=== PATIENT | female | born 1985 | race Caucasian/White ===

== ENCOUNTER → 2017-04-30 | Outpatient (CLI) | payer OTHER | END | disposition home or self-care (01) | LOC: US 07:16 | DX: K82.4 Cholesterolosis of gallbladder (principal); N63.0 Unspecified lump in unspecified breast ==

== ENCOUNTER → 2017-05-09 | Outpatient (CLI) | payer OTHER | LOC: US 07:09 | DX: N60.01 Solitary cyst of right breast (principal); N63.10 Unspecified lump in the right breast, unspecified quadrant; R10.11 Right upper quadrant pain ==

== ENCOUNTER → 2017-05-13 | Outpatient (CLI) | payer OTHER ==
[~2017-05-13] MED LIST: NORCO 5-325 TA1 EACH PO
[2017-05-13 13:55] LABS: BASO % 0.2 % (0.0-1.0); EOS # 0.1 10*3/uL (0.0-0.4); HEMATOCRIT 44.8 % (37.0-47.0); HEMOGLOBIN 14.6 g/dl (12.0-16.0); LYMPH # 2.3 10*3/uL (1.3-4.4); LYMPH % 20.5 % (27.0-41.0); MEAN CELL VOLUME 89.4 fl (81.0-99.0); MEAN CORPUSCULAR HGB 29.1 pg (27.0-31.0); MEAN CORPUSCULAR HGB CONC 32.6 g/dl (33.0-37.0); MEAN PLATELET VOLUME 10.1 fl (9.6-12.3); MONO # 0.6 10*3/uL (0.1-1.0); MONO % 4.9 % (3.0-9.0); NEUT # 8.3 10*3/uL (2.3-7.9); PLATELET COUNT AUTOMATED 272 10*3/uL (130-400); RED BLOOD COUNT 5.01 10*6/uL (4.10-5.10); WHITE BLOOD COUNT 11.4 10*3/uL (4.8-10.8)
[2017-05-13 14:24] LABS: ALBUMIN 4.1 gm/dl (3.1-4.5); ALKALINE PHOSPHATASE 83 U/L (45-117); BUN 8 mg/dl (7-24); CHLORIDE 108 mmol/L (98-107); CHOLESTEROL 162 mg/dL (<200); CREATININE 0.72 mg/dL (0.55-1.02); HDL CHOLESTEROL 62 mg/dl (40-60); LDL CHOLESTEROL 86 mg/dL (9-159); SGOT/AST 9 IU/L (3-35); SGPT/ALT 23 U/L (12-78); SODIUM 140 mmol/L (136-145); TOTAL PROTEIN 7.6 gm/dL (6.4-8.2); TRIGLYCERIDES 70 mg/dl (<150); VLDL CHOLESTEROL 14 mg/dL (6-40)
[2017-05-19 10:05] LABS: CORN, IGE <0.10 kU/L (Class 0); MILK (COW), IGE <0.10 kU/L (Class 0); PEANUT, IGE <0.10 kU/L (Class 0); SOYBEAN, IGE <0.10 kU/L (Class 0); WHEAT, IGE <0.10 kU/L (Class 0)
[2017-05-20 06:13] LABS: ALTERNARIA ALTERNATA, IGE <0.10 kU/L (Class 0); AMERICAN ELM, IGE <0.10 kU/L (Class 0); ASPERGILLUS FUMIGATU, IGE <0.10 kU/L (Class 0); BERMUDA GRASS, IGE <0.10 kU/L (Class 0); BIRCH, COMMON SILVER IGE <0.10 kU/L (Class 0); CLADOSPORIUM HERBARU, IGE <0.10 kU/L (Class 0); DOG DANDER, IGE 2.59 kU/L (Class III); IMMUNOGLOBULIN IgE 002170 279 IU/mL (0-100); MAPLE LEAF SYCAMORE, IGE <0.10 kU/L (Class 0); MAPLE/BOX ELDER, IGE <0.10 kU/L (Class 0); MOUSE URINE IGE <0.10 kU/L (Class 0); PENICILLIUM CHRYSOGENUM, IGE <0.10 kU/L (Class 0); ROUGH PIGWEED, IGE <0.10 kU/L (Class 0); SHEEP SORREL (DOCK), IGE <0.10 kU/L (Class 0); SHORT RAGWEED, IGE <0.10 kU/L (Class 0); TIMOTHY, IGE <0.10 kU/L (Class 0); WALNUT TREE, IGE <0.10 kU/L (Class 0); WHITE ASH, IGE <0.10 kU/L (Class 0); WHITE MULBERRY, IGE <0.10 kU/L (Class 0); WHITE OAK, IGE <0.10 kU/L (Class 0)
== END | disposition home or self-care (01) ==
LOC: LAB 13:24
PROVIDERS: Nurse Practitioner Primary Care
DX: R79.89 Other specified abnormal findings of blood chemistry (principal); Z91.09 Other allergy status, other than to drugs and biological substances; Z68.35 Body mass index [BMI] 35.0-35.9, adult

== ENCOUNTER → 2017-05-15 | Day surgery (SDC) | payer OTHER ==
[2017-05-14 13:42] VITALS: BP 124/85
[2017-05-14 14:36] LABS: BILIRUBIN 1+ (NEGATIVE); BLOOD NEGATIVE (NEGATIVE); CLARITY SL CLOUDY (CLEAR); COLOR YELLOW (YELLOW); GLUCOSE NEGATIVE (NEGATIVE); KETONE 1+ (NEGATIVE); LEUKO ESTERASE NEGATIVE (NEGATIVE); NITRITE NEGATIVE (NEGATIVE); PH 5.5 (5.0-9.0); SPECIFIC GRAVITY 1.025 (1.005-1.030); UROBILINOGEN 0.2 E.U./dl (0.2-1.0)
[2017-05-14 14:38] LABS: BASO % 0.1 % (0.0-1.0); EOS # 0.1 10*3/uL (0.0-0.4); EOS % 1.2 % (1.0-4.0); HEMATOCRIT 42.2 % (37.0-47.0); LYMPH # 2.6 10*3/uL (1.3-4.4); MEAN CELL VOLUME 89.4 fl (81.0-99.0); MEAN CORPUSCULAR HGB 29.7 pg (27.0-31.0); MEAN CORPUSCULAR HGB CONC 33.2 g/dl (33.0-37.0); MONO # 0.5 10*3/uL (0.1-1.0); MONO % 4.4 % (3.0-9.0); NEUT # 7.1 10*3/uL (2.3-7.9); PLATELET COUNT AUTOMATED 250 10*3/uL (130-400); RED BLOOD COUNT 4.72 10*6/uL (4.10-5.10); RED CELL DISTRI WIDTH 14.1 % (0-14.5); WHITE BLOOD COUNT 10.3 10*3/uL (4.8-10.8)
[2017-05-14 14:58] LABS: BACTERIA 2+; RBC 0-2 rbc/hpf (0-2); WBC 16-20 wbc/hpf (0-5)
[2017-05-14 15:05] LABS: ACT PARTIAL THROMBO TIME 27.1 SECONDS (20.8-31.5)
[2017-05-14 15:08] LABS: ALKALINE PHOSPHATASE 77 U/L (45-117); BILIRUBIN, DIRECT 0.2 mg/dL (0.0-0.2); BUN 9 mg/dl (7-24); CHLORIDE 106 mmol/L (98-107); CREATININE 0.72 mg/dL (0.55-1.02); POTASSIUM 3.7 mmol/L (3.5-5.1); SGPT/ALT 19 U/L (12-78); SODIUM 139 mmol/L (136-145); TOTAL PROTEIN 7.6 gm/dL (6.4-8.2)
[2017-05-14 15:19] LABS: SGOT/AST 11 IU/L (3-35)
[2017-05-15] VITALS (10 sets, daily range): BP systolic 103–165; BP diastolic 51–75
[~2017-05-15] VITALS: Ht 160 cm; Wt 90.7 kg
--- NOTE | ~2017-05-15 | O ---
[place], [place] OPERATIVE NOTE [facility]: [id number] UNIT #: [id number] ROOM: DOCTOR: NAZARIO ROSEN MD BIRTHDATE: [birth year] DOS: 05/15/2017 PREOPERATIVE DIAGNOSIS: Gallbladder adenoma, symptomatic gallbladder disease. POSTOPERATIVE DIAGNOSIS: Gallbladder adenoma, symptomatic gallbladder disease. PROCEDURE: Laparoscopic cholecystectomy. SURGEON: Nazario Rosen MD GROUP WORK PROGRAM DIRECTOR: PACO. ANESTHESIA: General with endotracheal intubation. INDICATIONS: This is a 31-year-old lady who has a history of right upper quadrant pain, for which an ultrasound was done, which revealed a gallbladder polyp/adenoma. She is here for the above-mentioned procedure. The procedure and its complications were explained to the patient in detail preoperatively. Complications that were discussed included but were not limited to bleeding, infection, hematoma/seroma/abscess formation, biloma formation, prolonged postoperative pain, damage to underlying vital structures, inadvertent injury to common bile duct and incisional hernia formation. She agreed to proceed. DESCRIPTION OF PROCEDURE: After identifying the patient, the patient was brought to the operating suite and laid in the supine position. After induction of general anesthesia, the parts were then painted and draped in the usual sterile fashion. An incision below the umbilicus in a transverse fashion was made. The skin and the subcutaneous tissue were incised in the line of the incision. The fascia was incised vertically and 2 stay sutures with 0 Vicryl were taken on either side. The peritoneum was opened and a 12 mm Daisy port was introduced. A pneumoperitoneum was created. Under direct vision, an epigastric incision of 10 mm and two 5 mm incisions were made in the right upper quadrant and appropriate size ports were introduced. The gallbladder was retracted superiorly and laterally. The cystic duct and the cystic artery were meticulously dissected until the critical view of safety was obtained and the triangle of Calot was clearly identified. Thereafter, each of the structures were clipped 3 times and cut between the first and the second clip. The gallbladder was then removed from the bed of the gallbladder with the help of electrocautery. It was removed from the peritoneal cavity in an EndoCatch bag and sent for histopathological diagnosis. Thereafter, hemostasis was confirmed in the liver bed. After hemostasis was confirmed, the right upper quadrant and the epigastric ports were removed under direct vision and there was no bleeding seen. The umbilical port was also removed and the pneumoperitoneum was decompressed. The 2 stay sutures were tied together and an additional 0 Vicryl stitch was taken in a sywuuk-[id number]-mezsd fashion to close the fascia. The subcutaneous tissue was irrigated and the skin edges were infiltrated with 1% lidocaine. The edges of the skin were then approximated with the help of 4-0 Vicryl in a subcuticular running fashion. Dressings were placed on all the four incisions. The patient was extubated uneventfully and brought back to the [place], [place] OPERATIVE NOTE NAME: JAGRUTI MACK UNIT #: [id number] ROOM: DOCTOR: NAZARIO ROSEN MD BIRTHDATE: [birth year] recovery room in stable fashion. There were no complications. Dr. Nazario Rosen, the attending surgeon, was present throughout the operating case. Nazario Rosen MD CM:OPRECORD:OPERATIVE NOTE [id number] NAZARIO ROSEN MD 05/15/17 1129 interface
== END | disposition home or self-care (01) ==
LOC: SDC 05-14 13:15
PROVIDERS: Surgery
DX: K80.10 Calculus of gallbladder with chronic cholecystitis without obstruction (principal); D13.5 Benign neoplasm of extrahepatic bile ducts; J45.909 Unspecified asthma, uncomplicated; F41.9 Anxiety disorder, unspecified; F32.9 Major depressive disorder, single episode, unspecified; F17.210 Nicotine dependence, cigarettes, uncomplicated; Z79.899 Other long term (current) drug therapy

== ENCOUNTER → 2017-10-01 | Outpatient (CLI) | payer OTHER | END | disposition home or self-care (01) | LOC: US 07:09 | DX: K42.9 Umbilical hernia without obstruction or gangrene (principal) ==

== ENCOUNTER → 2017-10-17 | Day surgery (SDC) | payer OTHER ==
[2017-10-16 13:46] VITALS: BP 132/71
[2017-10-16 14:19] LABS: BASO % 0.1 % (0.0-1.0); EOS # 0.1 10*3/uL (0.0-0.4); EOS % 0.8 % (1.0-4.0); HEMATOCRIT 42.6 % (37.0-47.0); LYMPH # 2.5 10*3/uL (1.3-4.4); LYMPH % 26.3 % (27.0-41.0); MEAN CELL VOLUME 89.3 fl (81.0-99.0); MEAN CORPUSCULAR HGB 29.4 pg (27.0-31.0); MEAN CORPUSCULAR HGB CONC 32.9 g/dl (33.0-37.0); MEAN PLATELET VOLUME 10.2 fl (9.6-12.3); MONO # 0.4 10*3/uL (0.1-1.0); MONO % 4.1 % (3.0-9.0); NEUT # 6.6 10*3/uL (2.3-7.9); NEUT % 68.4 % (47.0-73.0); PLATELET COUNT AUTOMATED 265 10*3/uL (130-400); RED BLOOD COUNT 4.77 10*6/uL (4.10-5.10); RED CELL DISTRI WIDTH 13.6 % (0-14.5); WHITE BLOOD COUNT 9.7 10*3/uL (4.8-10.8)
[2017-10-16 14:21] LABS: BILIRUBIN NEGATIVE (NEGATIVE); BLOOD TRACE-LYSED (NEGATIVE); CLARITY CLEAR (CLEAR); COLOR YELLOW (YELLOW); GLUCOSE NEGATIVE (NEGATIVE); KETONE NEGATIVE (NEGATIVE); LEUKO ESTERASE NEGATIVE (NEGATIVE); NITRITE NEGATIVE (NEGATIVE); SPECIFIC GRAVITY 1.015 (1.005-1.030); UROBILINOGEN 0.2 E.U./dl (0.2-1.0)
[2017-10-16 14:28] LABS: BUN 6 mg/dl (7-24); CHLORIDE 110 mmol/L (98-107); CREATININE 0.79 mg/dL (0.55-1.02); POTASSIUM 3.9 mmol/L (3.5-5.1); SODIUM 141 mmol/L (136-145)
[2017-10-16 14:31] LABS: BACTERIA TRACE; EPITHELIAL CELLS 35-40; RBC 0-2 rbc/hpf (0-2)
[2017-10-16 14:57] LABS: ACT PARTIAL THROMBO TIME 24.1 SECONDS (20.8-31.5); INTERNATIONAL NORM RATIO 0.9 (2.0-3.5)
[~2017-10-17] VITALS: Ht 160 cm; Wt 95.3 kg
[~2017-10-17] MED LIST changes: +CYMBALTA20 M1 PO; +SINGULAIR10 M1 PO; +TRIDERM28.4 GM T; +ZYRTEC10 MG PO
--- NOTE | ~2017-10-17 | O ---
[place], [place] OPERATIVE NOTE NAME: JAGRUTI MACK UNIT #: [id number] ROOM: DOCTOR: NAZARIO ROSEN MD BIRTHDATE: [birth year] DOS: 10/17/2017 PREOPERATIVE DIAGNOSIS: Umbilical port site hernia. POSTOPERATIVE DIAGNOSIS: Umbilical port site hernia. PROCEDURE: Repair of umbilical port site hernia. SURGEON: Nazario Rosen M.D. CERTIFIED ORTHOPTIST: PACO. ANESTHESIA: General (LMA). INDICATIONS: This is a 32-year-old lady with a previous history of laparoscopic cholecystectomy who is here for a port site hernia. The procedure and its complications were explained to the patient in detail preoperatively. Complications that were discussed included but were not limited to bleeding, infection, hematoma/seroma/abscess formation, damage to underlying vital structures and recurrence. She agreed to proceed. DESCRIPTION OF PROCEDURE: After identifying the patient, the patient was brought to the operating suite and laid in the supine position. After induction of general anesthesia, time-out procedure was called and the parts were then painted and draped in the usual sterile fashion. The incision was used previously for the laparoscopic cholecystectomy in the subumbilical fashion, was used again in order to enter the area of the umbilical hernia. The skin and the subcutaneous tissue were incised. The hernial sac was dissected away from the surrounding structures and the sac was excised and sent for histopathological diagnosis. Hernial defect itself was approximately 0.5 cm in diameter. Therefore, primary closure was performed. This was achieved with the help of looped #1 PDS in a [id number]-lw-xkunk fashion. Thereafter, the subcutaneous tissue was irrigated and approximated with the help of 3-0 Vicryl in a running fashion and the skin edges were approximated with the help of 4-0 Vicryl in a subcuticular running fashion after the edges were infiltrated with 1% plain lidocaine. Dressing was placed. The patient tolerated the procedure well and was brought back to the recovery in a stable fashion. There were no complications. Dr. Nazario Rosen, the attending surgeon, was present throughout the operating case. [place], [place] OPERATIVE NOTE NAME: JAGRUTI MACK UNIT #: [id number] ROOM: DOCTOR: NAZARIO ROSEN MDTE: [birth year] Nazario Rosen MD CM:DENAORD:OPERATIVE NOTE [id number] NAZARIO ROSEN MD 10/18/17 2121 interface
[2017-10-17 11:00] VITALS: BP 122/62
[2017-10-17 11:15] VITALS: BP 112/65
[2017-10-17 11:30] VITALS: BP 108/53
[2017-10-17 11:45] VITALS: BP 101/57
[2017-10-17 12:00] VITALS: BP 99/59
[2017-10-17 12:15] VITALS: BP 104/59
== END | disposition home or self-care (01) ==
LOC: SDC 10-16 13:15
PROVIDERS: Surgery
DX: K43.2 Incisional hernia without obstruction or gangrene (principal); F41.9 Anxiety disorder, unspecified; Z98.51 Tubal ligation status; Z90.49 Acquired absence of other specified parts of digestive tract; Z79.899 Other long term (current) drug therapy; J45.909 Unspecified asthma, uncomplicated; F32.9 Major depressive disorder, single episode, unspecified; F17.210 Nicotine dependence, cigarettes, uncomplicated

== ENCOUNTER 2019-03-24 09:57 | Emergency (ER) | payer OTHER ==
[~2019-03-24] VITALS: Ht 160 cm; Wt 95.3 kg
[2019-03-24 10:48] LABS: BASO % 0.1 % (0.0-1.0); EOS # 0.1 10*3/uL (0.0-0.4); EOS % 1.6 % (1.0-4.0); HEMATOCRIT 43.7 % (37.0-47.0); HEMOGLOBIN 14.1 g/dl (12.0-16.0); LYMPH # 1.7 10*3/uL (1.3-4.4); LYMPH % 21.8 % (27.0-41.0); MEAN CELL VOLUME 89.4 fl (81.0-99.0); MEAN CORPUSCULAR HGB 28.8 pg (27.0-31.0); MEAN CORPUSCULAR HGB CONC 32.3 g/dl (33.0-37.0); MEAN PLATELET VOLUME 9.6 fl (9.6-12.3); MONO # 0.4 10*3/uL (0.1-1.0); MONO % 4.5 % (3.0-9.0); NEUT # 5.7 10*3/uL (2.3-7.9); NEUT % 71.7 % (47.0-73.0); PLATELET COUNT AUTOMATED 272 10*3/uL (130-400); RED BLOOD COUNT 4.89 10*6/uL (4.10-5.10); RED CELL DISTRI WIDTH 13.6 % (0-14.5); WHITE BLOOD COUNT 7.9 10*3/uL (4.8-10.8)
[2019-03-24 11:05] LABS: ALBUMIN 3.7 gm/dl (3.1-4.5); ALKALINE PHOSPHATASE 85 U/L (45-117); BUN 5 mg/dl (7-24); CHLORIDE 106 mmol/L (98-107); CREATININE 0.66 mg/dL (0.55-1.02); LIPASE 76 U/L (73-393); POTASSIUM 4.3 mmol/L (3.5-5.1); SGOT/AST 13 IU/L (3-35); SGPT/ALT 25 U/L (12-78); SODIUM 139 mmol/L (136-145); TOTAL PROTEIN 7.1 gm/dL (6.4-8.2)
[2019-03-24 11:08] LABS: BETA-HCG, QUANT < 1.0 mIU/mL (1-3)
[2019-03-24] MEDS ORDERED: Motrin,Rufen800 MG PO (13:08)
[2019-03-24] MEDS ORDERED: PHENERGAN25 M3 PO (13:08)
== END 2019-03-24 13:14 | disposition home or self-care (01) ==
LOC: ED 09:57
PROVIDERS: Emergency Medicine
DX: R51 Headache (principal); R11.0 Nausea; J45.909 Unspecified asthma, uncomplicated; Z79.899 Other long term (current) drug therapy

== ENCOUNTER → 2021-05-02 | Outpatient (CLI) | payer OTHER ==
[~2021-05-02] MED LIST changes: +Motrin,Rufen800 MG PO; +PHENERGAN25 M3 PO
== END | disposition home or self-care (01) ==
LOC: US 15:47
PROVIDERS: ATTEND Nurse Practitioner Women's Health
DX: N83.292 Other ovarian cyst, left side (principal)

== ENCOUNTER → 2022-04-18 | Outpatient (CLI) | payer OTHER | END | disposition home or self-care (01) | LOC: MAMMO 00:19 | PROVIDERS: ATTEND Nurse Practitioner Women's Health | DX: N63.11 Unspecified lump in the right breast, upper outer quadrant (principal); N60.01 Solitary cyst of right breast; N60.02 Solitary cyst of left breast; N64.4 Mastodynia; N64.52 Nipple discharge; R92.2 Inconclusive mammogram ==

== ENCOUNTER → 2022-04-25 | Outpatient (CLI) | payer OTHER | END | disposition home or self-care (01) | LOC: LAB 11:08 | PROVIDERS: ATTEND Nurse Practitioner Women's Health | DX: N64.52 Nipple discharge (principal); R53.83 Other fatigue ==

== ENCOUNTER 2023-02-17 21:29 | Emergency (ER) | payer OTHER ==
[~2023-02-17] VITALS: Ht 157.4 cm; Wt 81.6 kg
[2023-02-17] MEDS ORDERED: SEPTDS PO (22:07)
== END 2023-02-17 22:14 | disposition home or self-care (01) ==
LOC: ED 21:29
DX: N61.1 Abscess of the breast and nipple (principal); J45.909 Unspecified asthma, uncomplicated; F32.A Depression, unspecified; F41.9 Anxiety disorder, unspecified; Z98.51 Tubal ligation status; Z90.49 Acquired absence of other specified parts of digestive tract; Z98.890 Other specified postprocedural states

== ENCOUNTER → 2023-02-27 | Outpatient (CLI) | payer OTHER ==
[~2023-02-27] MED LIST changes: +SEPTDS PO
== END | disposition home or self-care (01) ==
LOC: WOUNDCARE 00:47
PROVIDERS: ATTEND Nurse Practitioner Family
DX: N61.1 Abscess of the breast and nipple (principal); S21.001A Unspecified open wound of right breast, initial encounter; N64.4 Mastodynia; L03.90 Cellulitis, unspecified; F17.200 Nicotine dependence, unspecified, uncomplicated; X58.XXXA Exposure to other specified factors, initial encounter; Y93.89 Activity, other specified; Y92.89 Other specified places as the place of occurrence of the external cause; Y99.8 Other external cause status

== ENCOUNTER → 2023-03-06 | Outpatient (CLI) | payer OTHER | END | disposition home or self-care (01) | LOC: WOUNDCARE 02:09 | PROVIDERS: ATTEND Nurse Practitioner Family | DX: N61.1 Abscess of the breast and nipple (principal); S21.001D Unspecified open wound of right breast, subsequent encounter; N64.4 Mastodynia; L03.90 Cellulitis, unspecified; F17.200 Nicotine dependence, unspecified, uncomplicated; X58.XXXD Exposure to other specified factors, subsequent encounter ==

== ENCOUNTER → 2023-03-13 | Outpatient (CLI) | payer OTHER | END | disposition home or self-care (01) | LOC: WOUNDCARE 01:13 | PROVIDERS: ATTEND Nurse Practitioner Family | DX: N61.1 Abscess of the breast and nipple (principal); S21.001D Unspecified open wound of right breast, subsequent encounter; N64.4 Mastodynia; L03.90 Cellulitis, unspecified; F17.200 Nicotine dependence, unspecified, uncomplicated; X58.XXXD Exposure to other specified factors, subsequent encounter ==

== ENCOUNTER → 2023-03-20 | Outpatient (CLI) | payer OTHER | END | disposition home or self-care (01) | LOC: WOUNDCARE 01:23 | PROVIDERS: ATTEND Nurse Practitioner Family | DX: N61.1 Abscess of the breast and nipple (principal); S21.001D Unspecified open wound of right breast, subsequent encounter; N64.4 Mastodynia; L03.90 Cellulitis, unspecified; F17.200 Nicotine dependence, unspecified, uncomplicated; X58.XXXD Exposure to other specified factors, subsequent encounter ==

== ENCOUNTER → 2023-03-27 | Outpatient (CLI) | payer OTHER | END | disposition home or self-care (01) | LOC: WOUNDCARE 01:03 | PROVIDERS: ATTEND Nurse Practitioner Family | DX: N61.1 Abscess of the breast and nipple (principal); S21.001D Unspecified open wound of right breast, subsequent encounter; N64.4 Mastodynia; L03.90 Cellulitis, unspecified; F17.200 Nicotine dependence, unspecified, uncomplicated; X58.XXXD Exposure to other specified factors, subsequent encounter ==

== ENCOUNTER → 2023-04-10 | Outpatient (CLI) | payer OTHER | END | disposition home or self-care (01) | LOC: WOUNDCARE 01:01 | PROVIDERS: ATTEND Nurse Practitioner Family | DX: N61.1 Abscess of the breast and nipple (principal); S21.001D Unspecified open wound of right breast, subsequent encounter; N64.4 Mastodynia; L03.90 Cellulitis, unspecified; F17.200 Nicotine dependence, unspecified, uncomplicated; X58.XXXD Exposure to other specified factors, subsequent encounter ==

== ENCOUNTER → 2023-04-23 | Outpatient (CLI) | payer OTHER | END | disposition home or self-care (01) | LOC: WOUNDCARE 01:27 | PROVIDERS: ATTEND Nurse Practitioner Family | DX: N61.1 Abscess of the breast and nipple (principal); S21.001D Unspecified open wound of right breast, subsequent encounter; N64.4 Mastodynia; L03.90 Cellulitis, unspecified; F17.200 Nicotine dependence, unspecified, uncomplicated; X58.XXXD Exposure to other specified factors, subsequent encounter ==

== ENCOUNTER → 2023-05-07 | Outpatient (CLI) | payer OTHER | END | disposition home or self-care (01) | LOC: WOUNDCARE 03:23 | PROVIDERS: ATTEND Nurse Practitioner Family | DX: N61.1 Abscess of the breast and nipple (principal); S21.001D Unspecified open wound of right breast, subsequent encounter; N64.4 Mastodynia; L03.90 Cellulitis, unspecified; F17.200 Nicotine dependence, unspecified, uncomplicated; X58.XXXD Exposure to other specified factors, subsequent encounter ==

== ENCOUNTER → 2023-05-14 | Outpatient (CLI) | payer OTHER | END | disposition home or self-care (01) | LOC: WOUNDCARE 00:15 | PROVIDERS: ATTEND Nurse Practitioner Family | DX: N61.1 Abscess of the breast and nipple (principal); S21.001D Unspecified open wound of right breast, subsequent encounter; N64.4 Mastodynia; L03.90 Cellulitis, unspecified; F17.210 Nicotine dependence, cigarettes, uncomplicated; X58.XXXD Exposure to other specified factors, subsequent encounter ==

== ENCOUNTER 2023-12-12 21:19 | Emergency (ER) | payer OTHER ==
[~2023-12-12] VITALS: Ht 157.4 cm; Wt 81.6 kg
[2023-12-12] MEDS ORDERED: PROZAC40 M1 PO (21:31)
[2023-12-12] MEDS ORDERED: methylPREDNISolone sod succ 125 MG VIAL IM ONE (21:45)
[2023-12-12] MEDS ORDERED: PREDNISONE50 MG PO (21:47)
== END 2023-12-12 22:00 | disposition home or self-care (01) ==
LOC: ED 21:19
DX: L23.7 Allergic contact dermatitis due to plants, except food (principal); J45.909 Unspecified asthma, uncomplicated; F32.A Depression, unspecified; F41.9 Anxiety disorder, unspecified; Z98.51 Tubal ligation status; Z90.49 Acquired absence of other specified parts of digestive tract; Z98.890 Other specified postprocedural states

== ENCOUNTER → 2024-03-08 | Outpatient (CLI) | payer OTHER ==
[~2024-03-08] MED LIST changes: +CEPHALEXIN500 M1 PO; +HYDROCODONE-AC1 EAC1 PO; +PREDNISONE50 MG PO; +PROZAC40 M1 PO
== END | disposition home or self-care (01) ==
LOC: WOUNDCARE 14:57
PROVIDERS: ATTEND Nurse Practitioner Family
DX: T81.89XA Other complications of procedures, not elsewhere classified, initial encounter (principal); S21.002A Unspecified open wound of left breast, initial encounter; L03.90 Cellulitis, unspecified; N64.4 Mastodynia; N61.1 Abscess of the breast and nipple; F41.9 Anxiety disorder, unspecified; F32.A Depression, unspecified; F17.200 Nicotine dependence, unspecified, uncomplicated; Z79.899 Other long term (current) drug therapy; Y83.8 Other surgical procedures as the cause of abnormal reaction of the patient, or of later complication, without mention of misadventure at the time of the procedure; Y92.89 Other specified places as the place of occurrence of the external cause

== ENCOUNTER → 2024-03-16 | Outpatient (CLI) | payer OTHER | END | disposition home or self-care (01) | LOC: WOUNDCARE 04:41 | PROVIDERS: ATTEND Nurse Practitioner Family | DX: T81.89XD Other complications of procedures, not elsewhere classified, subsequent encounter (principal); N61.1 Abscess of the breast and nipple; N64.4 Mastodynia; L03.90 Cellulitis, unspecified; S21.002D Unspecified open wound of left breast, subsequent encounter; I10 Essential (primary) hypertension; E66.9 Obesity, unspecified; F32.A Depression, unspecified; F41.9 Anxiety disorder, unspecified; Z87.891 Personal history of nicotine dependence; Z90.49 Acquired absence of other specified parts of digestive tract; X58.XXXD Exposure to other specified factors, subsequent encounter; Y83.8 Other surgical procedures as the cause of abnormal reaction of the patient, or of later complication, without mention of misadventure at the time of the procedure ==

== ENCOUNTER → 2024-03-23 | Outpatient (CLI) | payer OTHER | END | disposition home or self-care (01) | LOC: WOUNDCARE 01:19 | PROVIDERS: ATTEND Nurse Practitioner Family | DX: T81.89XD Other complications of procedures, not elsewhere classified, subsequent encounter (principal); S21.002D Unspecified open wound of left breast, subsequent encounter; L03.90 Cellulitis, unspecified; N64.4 Mastodynia; N61.1 Abscess of the breast and nipple; F41.9 Anxiety disorder, unspecified; F32.A Depression, unspecified; F17.200 Nicotine dependence, unspecified, uncomplicated; Z79.899 Other long term (current) drug therapy; X58.XXXD Exposure to other specified factors, subsequent encounter; Y83.8 Other surgical procedures as the cause of abnormal reaction of the patient, or of later complication, without mention of misadventure at the time of the procedure ==

== ENCOUNTER → 2024-03-30 | Outpatient (CLI) | payer OTHER | END | disposition home or self-care (01) | LOC: WOUNDCARE 01:22 | PROVIDERS: ATTEND Nurse Practitioner Family | DX: T81.89XD Other complications of procedures, not elsewhere classified, subsequent encounter (principal); S21.002D Unspecified open wound of left breast, subsequent encounter; L03.90 Cellulitis, unspecified; N64.4 Mastodynia; N61.1 Abscess of the breast and nipple; F41.9 Anxiety disorder, unspecified; F32.A Depression, unspecified; F17.200 Nicotine dependence, unspecified, uncomplicated; Z79.899 Other long term (current) drug therapy; X58.XXXD Exposure to other specified factors, subsequent encounter; Y83.8 Other surgical procedures as the cause of abnormal reaction of the patient, or of later complication, without mention of misadventure at the time of the procedure ==

== ENCOUNTER → 2024-08-25 | Outpatient (CLI) | payer OTHER | END | disposition home or self-care (01) | LOC: US 01:50 | PROVIDERS: ATTEND Nurse Practitioner Women's Health | DX: N60.02 Solitary cyst of left breast (principal); N61.1 Abscess of the breast and nipple ==

== ENCOUNTER 2024-09-28 17:32 | Emergency (ER) | payer OTHER ==
[~2024-09-28] VITALS: Ht 157.4 cm; Wt 90.7 kg
[2024-09-28] MEDS ORDERED: PREDNISONE10 MG PO (17:52)
[2024-09-28] MEDS ORDERED: Dexamethasone Sodium Phospha 20 MG/5 ML VIAL IM ONE (17:55)
== END 2024-09-28 18:18 | disposition home or self-care (01) ==
LOC: ED 17:32
DX: L25.9 Unspecified contact dermatitis, unspecified cause (principal); J45.909 Unspecified asthma, uncomplicated; F32.A Depression, unspecified; F41.9 Anxiety disorder, unspecified; Z79.899 Other long term (current) drug therapy; Z90.49 Acquired absence of other specified parts of digestive tract; Z98.51 Tubal ligation status; Z98.890 Other specified postprocedural states

== ENCOUNTER → 2025-01-11 | Outpatient (CLI) | payer OTHER ==
[~2025-01-11] MED LIST changes: +PREDNISONE10 MG PO
== END | disposition home or self-care (01) ==
LOC: MAMMO 12:43
PROVIDERS: ATTEND Nurse Practitioner Women's Health
DX: N60.02 Solitary cyst of left breast (principal); N60.01 Solitary cyst of right breast; R92.323 Mammographic fibroglandular density, bilateral breasts; N64.4 Mastodynia

== ENCOUNTER → 2025-02-24 | Outpatient (CLI) | payer OTHER ==
[2025-02-24 10:07] LABS: BASO # 0.0 10*3/uL (0.0-0.1); BASO % 0.1 % (0.0-1.0); EOS # 0.1 10*3/uL (0.0-0.4); EOS % 0.7 % (1.0-4.0); MEAN CELL VOLUME 90.1 fl (81.0-99.0); MEAN CORPUSCULAR HGB 28.9 pg (27.0-31.0); MEAN PLATELET VOLUME 9.4 fl (9.6-12.3); MONO # 0.5 10*3/uL (0.1-1.0); MONO % 5.0 % (3.0-9.0); NEUT # 7.4 10*3/uL (2.3-7.9); NEUT % 75.4 % (47.0-73.0); NUCLEATED RED BLOOD CELL 0.0 % (0.0-0.0); NUCLEATED RED BLOOD CELL 0.0 10*3/uL (0.0-0.0); PLATELET COUNT AUTOMATED 300 10*3/uL (130-400); RED CELL DISTRI WIDTH 13.7 % (0-14.5)
[2025-02-24 10:26] LABS: BUN 8 mg/dl (9-23); SGPT/ALT 15 U/L (5-49)
== END | disposition home or self-care (01) ==
LOC: LAB 09:40
PROVIDERS: ATTEND Physician Assistant Surgical
DX: L20.89 Other atopic dermatitis (principal)